=== PATIENT | female | born 1970 | race Hispanic/Latino ===

== ENCOUNTER 2023-03-12 20:25 | Emergency (ER) | payer MEDICAID, SELFPAY ==
[2023-03-12 21:29] LABS: #Eosinphils 0.1 thou/uL (0.0-0.7); #Monocytes 0.7 thou/uL (0.11-0.59); #Neutrophils 4.2 thou/uL (1.40-6.50); %Basophils 0.5 % (0.0-1.0); %Monocytes 10.8 % (0.0-10.0); %Neutrophils 63.5 % (42.0-75.0); Hematocrit 38.2 % (36.0-47.0); Hemoglobin 13.1 g/dL (12.0-16.0); Mean Corpuscular HGB CONC 34.3 g/dL (32.0-36.0); Mean Corpuscular Hemoglobin 29.4 pg (27.0-31.0); Mean Corpuscular Volume 85.8 fl (78.0-98.0); Mean Platelet Volume 12.9 fL (7.4-10.4); Platelet Count 125 10x3/uL (130-400); RBC Distribution Width 11.9 % (11.5-14.5); Red Blood Cell (RBC) Count 4.45 mill/uL (4.20-5.40); White Blood Cell (WBC) Count 6.6 10x3/uL (4.8-10.8)
[2023-03-12 21:53] LABS: ALT (SGPT) 21 U/L (8-55); AST (SGOT) 22 U/L (5-34); Albumin 4.5 g/dL (3.5-5.0); Alkaline Phosphatase 47 U/L (40-110); Anion Gap 13 mmol/L (10-20); BUN (Urea Nitrogen) 12 mg/dL (7.0-18.7); Bilirubin, Total 0.3 mg/dL (0.2-1.2); Calc. Creatinine Clearance 0 mL/min (70-130); Calcium 9.5 mg/dL (7.8-10.44); Carbon Dioxide 23 mmol/L (22-29); Chloride 100 mmol/L (98-107); Estimated GFR 104; Globulin 3.1 g/dL (2.4-3.5); Glucose 95 mg/dL (70-105); Lipase 40 U/L (8-78); Potassium 3.7 mmol/L (3.5-5.1); Protein, Total 7.6 g/dL (6.0-8.3); Sodium 132 mmol/L (136-145)
[2023-03-12 21:55] LABS: Troponin I Less than 0.010 ng/mL (< 0.028)
[2023-03-12] MEDS ORDERED: Aspirin 81 mg Enteric Coated Tablet ONE ×2 (22:01→22:02)
[2023-03-12] MEDS ORDERED: Acetaminophen 500 MG TAB ONE (22:01)
[2023-03-12] MEDS ORDERED: Ketorolac Tromethamine 30 MG/ML VIAL ONE (22:57)
[2023-03-12] MEDS ORDERED: Cyclobenzaprine 10 MG TAB ONE (22:57)
== END 2023-03-13 00:10 | disposition home or self-care (01) ==
LOC: ERS 20:25
DX: R07.89 Other chest pain (principal)
CPT/HCPCS: 71045; 80053; 83690; 84484; 85025; 85379; 93005; 96374; J1885